=== PATIENT | female | born 1970 | race African-American/Black ===

== ENCOUNTER 2017-08-12 22:37 | Emergency (ER) | payer OTHER ==
[~2017-08-12] VITALS: Ht 170.2 cm; Wt 108.0 kg
[~2017-08-12 22:37] MED LIST: AURODEX OTIC SO10 ML OT; CORTISPORIN OTI10 M2 OT; IBUPROFEN 200200 M1 PO; IBUPROFEN 600600 M1 PO; IRON PO; LORTAB 5 MG/5001 TA1 PO; MUPIROCIN22 GM TOP; NOHOMEMEDICATIONS; NORCO 5-325 TA1 EACH PO; SILVADENE20 GM TP; THERA-M CAPLET1 EACH OR; ULTRAM 50MG TAB50 MG PO
[2017-08-13] MEDS ORDERED: NAPROSYN500 MG PO (00:04)
[2017-08-13] MEDS ORDERED: ULTRAM 50MG TAB50 MG PO (00:04)
[2017-08-13 00:30] VITALS: BP 132/88
== END 2017-08-13 00:32 | disposition home or self-care (01) ==
LOC: ER 22:37
DX: S40.011A Contusion of right shoulder, initial encounter (principal); S60.211A Contusion of right wrist, initial encounter; Z88.0 Allergy status to penicillin; W01.0XXA Fall on same level from slipping, tripping and stumbling without subsequent striking against object, initial encounter; Y93.89 Activity, other specified; Y92.89 Other specified places as the place of occurrence of the external cause; Y99.8 Other external cause status

== ENCOUNTER 2018-09-01 13:42 | Emergency (ER) | payer OTHER ==
[~2018-09-01] VITALS: Ht 170.2 cm; Wt 108.0 kg
[~2018-09-01 13:42] MED LIST changes: +NAPROSYN500 MG PO
[2018-09-01] MEDS ORDERED: ALLERGY EYE DROP5 ML OPHTHALMIC (15:33)
[2018-09-01 15:42] VITALS: BP 132/86
== END 2018-09-01 15:40 | disposition home or self-care (01) ==
LOC: ER 13:42
DX: H10.13 Acute atopic conjunctivitis, bilateral (principal); J30.9 Allergic rhinitis, unspecified; Z86.2 Personal history of diseases of the blood and blood-forming organs and certain disorders involving the immune mechanism; Z88.0 Allergy status to penicillin

== ENCOUNTER 2018-12-06 16:25 | Emergency (ER) | payer OTHER ==
[~2018-12-06] VITALS: Ht 175.3 cm; Wt 127.0 kg
[~2018-12-06 16:25] MED LIST changes: +ALLERGY EYE DROP5 ML OPHTHALMIC
[2018-12-06] MEDS ORDERED: NAPROSYN500 MG PO (16:58)
[2018-12-06 17:53] VITALS: BP 174/93
== END 2018-12-06 17:53 | disposition home or self-care (01) ==
LOC: ER 16:25
DX: M70.861 Other soft tissue disorders related to use, overuse and pressure, right lower leg (principal); Z88.0 Allergy status to penicillin; Z86.2 Personal history of diseases of the blood and blood-forming organs and certain disorders involving the immune mechanism; Z98.890 Other specified postprocedural states; Y93.89 Activity, other specified

== ENCOUNTER 2019-04-28 20:29 | Emergency (ER) | payer OTHER ==
[~2019-04-28] VITALS: Ht 170.2 cm; Wt 108.0 kg
[2019-04-28 21:59] VITALS: BP 146/88
== END 2019-04-28 22:01 | disposition home or self-care (01) ==
LOC: ER 20:29
DX: S86.911A Strain of unspecified muscle(s) and tendon(s) at lower leg level, right leg, initial encounter (principal); Z88.0 Allergy status to penicillin; X58.XXXA Exposure to other specified factors, initial encounter; Y93.89 Activity, other specified; Y92.89 Other specified places as the place of occurrence of the external cause; Y99.8 Other external cause status

== ENCOUNTER 2019-06-02 15:35 | Emergency (ER) | payer OTHER ==
[~2019-06-02] VITALS: Ht 170.2 cm; Wt 108.9 kg
[~2019-06-02 15:35] MED LIST changes: +ADVAIR HFA 230M12 GM INH; +HAIR, SKIN AND1 EAC2 PO; +MOBIC15 MG PO; +MOBIC7.5 MG PO; +NORCO 5-325 TA1 EAC1 PO; +VENTOLIN HFA 1818 GM INH
[2019-06-02] MEDS ORDERED: FLOVENT HFA 4444 MCG INH (16:27)
[2019-06-02] MEDS ORDERED: TRAMADOL 50 MG50 MG PO (16:27)
[2019-06-02 16:50] VITALS: BP 148/71
== END 2019-06-02 17:08 | disposition home or self-care (01) ==
LOC: ER 15:35
DX: S60.222A Contusion of left hand, initial encounter (principal); J45.909 Unspecified asthma, uncomplicated; Z88.0 Allergy status to penicillin; W22.8XXA Striking against or struck by other objects, initial encounter; Y93.89 Activity, other specified; Y92.89 Other specified places as the place of occurrence of the external cause; Y99.8 Other external cause status

== ENCOUNTER 2019-07-07 23:44 | Emergency (ER) | payer OTHER ==
[~2019-07-07] VITALS: Ht 170.2 cm; Wt 104.3 kg
[~2019-07-07 23:44] MED LIST changes: +FLOVENT HFA 4444 MCG INH; +TRAMADOL 50 MG50 MG PO
[2019-07-07 23:46] VITALS: BP 132/77
[2019-07-08] MEDS ORDERED: NORCO 5-325 TA1 EAC1 PO (00:04)
[2019-07-08] MEDS ORDERED: IBUPROFEN 600600 M1 PO (12:42)
== END 2019-07-08 01:00 | disposition home or self-care (01) ==
LOC: ER 23:44
DX: T22.20XA Burn of second degree of shoulder and upper limb, except wrist and hand, unspecified site, initial encounter (principal); T31.0 Burns involving less than 10% of body surface; Z88.0 Allergy status to penicillin; Z86.2 Personal history of diseases of the blood and blood-forming organs and certain disorders involving the immune mechanism; Z98.890 Other specified postprocedural states

== ENCOUNTER 2019-07-08 12:12 | Emergency (ER) | payer OTHER ==
[~2019-07-08] VITALS: Ht 170.2 cm; Wt 108.9 kg
[2019-07-08 12:13] VITALS: BP 153/57
[2019-07-08] MEDS ORDERED: IBUPROFEN 600600 M1 PO (12:42)
== END 2019-07-08 13:35 | disposition home or self-care (01) ==
LOC: ER 12:12
DX: T22.232A Burn of second degree of left upper arm, initial encounter (principal); Z88.0 Allergy status to penicillin; Z86.2 Personal history of diseases of the blood and blood-forming organs and certain disorders involving the immune mechanism; Z98.890 Other specified postprocedural states; X19.XXXA Contact with other heat and hot substances, initial encounter; Y93.89 Activity, other specified; Y92.89 Other specified places as the place of occurrence of the external cause; Y99.8 Other external cause status

== ENCOUNTER 2019-08-27 21:18 | Emergency (ER) | payer OTHER ==
[~2019-08-27] VITALS: Ht 170.2 cm; Wt 108.4 kg
[2019-08-27 21:19] VITALS: BP 156/73
== END 2019-08-27 22:30 | disposition left against medical advice (07) ==
LOC: ER 21:18
DX: Z53.21 Procedure and treatment not carried out due to patient leaving prior to being seen by health care provider (principal)

== ENCOUNTER 2020-10-15 21:33 | Emergency (ER) | payer OTHER ==
[~2020-10-15] VITALS: Ht 170.2 cm; Wt 108.9 kg
[2020-10-15] MEDS ORDERED: NAPROSYN500 MG PO (22:22)
[2020-10-15] MEDS ORDERED: NORFLEX100 MG PO (22:22)
[2020-10-15 23:13] VITALS: BP 177/97
== END 2020-10-15 23:15 | disposition home or self-care (01) ==
LOC: ER 21:33
DX: S16.1XXA Strain of muscle, fascia and tendon at neck level, initial encounter (principal); R20.2 Paresthesia of skin; M54.6 Pain in thoracic spine; M79.601 Pain in right arm; M79.641 Pain in right hand; J45.909 Unspecified asthma, uncomplicated; Z98.890 Other specified postprocedural states; Z79.899 Other long term (current) drug therapy; Z88.0 Allergy status to penicillin; V49.88XA Car occupant (driver) (passenger) injured in other specified transport accidents, initial encounter; Y93.89 Activity, other specified; Y92.488 Other paved roadways as the place of occurrence of the external cause; Y99.8 Other external cause status

== ENCOUNTER 2022-01-13 15:00 | Emergency (ER) | payer OTHER ==
[~2022-01-13] VITALS: Ht 170.2 cm; Wt 99.3 kg
[~2022-01-13 15:00] MED LIST changes: +NORFLEX100 MG PO
[2022-01-13 15:16] VITALS: BP 134/84
[2022-01-13 15:45] LABS: URINE BILIRUBIN NEGATIVE (Negative); URINE BLOOD 3+ (Negative); URINE CLARITY CLOUDY; URINE COLOR YELLOW; URINE GLUCOSE-RANDOM* NEGATIVE (Negative); URINE KETONES NEGATIVE (Negative); URINE PROTEIN (DIPSTICK) 1+ (Negative); URINE SPECIFIC GRAVITY >= 1.030 (1.005-1.035); URINE UROBILINOGEN 0.2 E.U./dl (0.2-1.0)
[2022-01-13 15:47] LABS: URINE LEUKOCYTES-REFLEX 2+ (Negative); URINE NITRITE-REFLEX POSITIVE (Negative)
[2022-01-13 16:01] LABS: SQUAMOUS 4-10 Moderate /LPF (0-3)
[2022-01-13] MEDS ORDERED: CEPHALEXIN500 MG PO (16:01)
[2022-01-13] MEDS ORDERED: SSD CREAM 1% 5050 GM TOP (16:01)
[2022-01-13 16:02] LABS: BACTERIA-REFLEX >30 Many /HPF (None Seen); CRYSTALS None Seen /LPF (None Seen); HYALINE CASTS 0-3 Few /LPF (None Seen); URINE WBC-REFLEX 6-15 Few /HPF (0-5)
== END 2022-01-13 16:15 | disposition home or self-care (01) ==
LOC: ER 15:00
PROVIDERS: Nurse Practitioner Family
DX: N39.0 Urinary tract infection, site not specified (principal); T24.201A Burn of second degree of unspecified site of right lower limb, except ankle and foot, initial encounter; T31.0 Burns involving less than 10% of body surface; J45.909 Unspecified asthma, uncomplicated; Z79.899 Other long term (current) drug therapy; Z88.0 Allergy status to penicillin